=== PATIENT | female | born 1970 | race African-American/Black ===

== ENCOUNTER 2022-01-23 16:35 | Emergency (ER) | payer OTHER ==
[~2022-01-23] VITALS: Ht 170.2 cm; Wt 127.0 kg
[2022-01-23] MEDS ORDERED: ASPIRIN 81MG TABLET PO ONE (18:45)
[2022-01-23] MEDS ORDERED: ONDANSETRON HCL 4MG/2ML INJ IV ONE (18:45)
[2022-01-23] MEDS ORDERED: NITROGLYCERIN 0.4MG TABLET SL SL PRN (18:45)
[2022-01-23] MEDS ORDERED: CLONIDINE 0.2MG TABLET PO ONE (18:45)
[2022-01-23 19:46] LABS: HEMATOCRIT. 43.8 % (36.0-48.0); HEMOGLOBIN. 14.1 g/dL (12.0-16.0); MEAN CORPUSCULAR HEMOGLOBIN 27.1 pg (28.0-32.0); MEAN CORPUSCULAR VOLUME 84.4 fL (81.0-99.0); MEAN PLATELET VOLUME 9.2 fl (7.4-10.4); PLATELET 214 x1000/uL (130-400); RED BLOOD CELL COUNT 5.19 mill/uL (4.2-5.4); RED CELL DISTRIBUTION WIDTH 15.1 % (11.6-14.6)
[2022-01-23 19:52] LABS: CHLORIDE 102 mEq/L (98-107)
[2022-01-23 19:54] LABS: HCG SCREEN NEGATIVE
[2022-01-23 19:56] LABS: D-DIMER 1.04 mg/L FEU (<0.50); PARTIAL THROMBOPLASTIN TIME 26.3 sec (23.4-31.0); PROTHROMBIN TIME 10.8 sec (9.6-11.0)
[2022-01-23 20:35] LABS: PLATELET ESTIMATE NORMAL
[2022-01-23] MEDS ORDERED: CEFTRIAXONE 1 G PREMIX 50 ML IV ONE (21:00)
[2022-01-23 21:47] LABS: CLARITY URINE CLOUDY (CLEAR); COLOR URINE YELLOW (YELLOW); KETONES URINE NEGATIVE (NEGATIVE); LEUKOCYTE ESTERASE URINE 3+ (NEGATIVE); NITRITE URINE POSITIVE (NEGATIVE); OCCULT BLOOD URINE 2+ (NEGATIVE); PH URINE 5.5 (4.5-8.0); PROTEIN URINE 1+ (NEGATIVE); SPECIFIC GRAVITY URINE 1.057 (1.005-1.030); UROBILINOGEN URINE 0.2 E.U./dL (0.2-1.0)
[2022-01-23 23:00] VITALS: BP 123/66
== END 2022-01-23 23:48 | disposition short-term general hospital (02) ==
LOC: ER 16:35
DX: R06.02 Shortness of breath (principal); I10 Essential (primary) hypertension; R00.0 Tachycardia, unspecified; M79.605 Pain in left leg; M79.604 Pain in right leg; N39.0 Urinary tract infection, site not specified; R94.31 Abnormal electrocardiogram [ECG] [EKG]; I25.10 Atherosclerotic heart disease of native coronary artery without angina pectoris; E66.01 Morbid (severe) obesity due to excess calories; Z68.41 Body mass index [BMI] 40.0-44.9, adult; Z20.822 Contact with and (suspected) exposure to COVID-19; Z95.5 Presence of coronary angioplasty implant and graft; Z86.718 Personal history of other venous thrombosis and embolism; Z79.01 Long term (current) use of anticoagulants; Z79.899 Other long term (current) drug therapy
CPT/HCPCS: 36415; 71045; 71275; 80053; 81003; 83880; 84484; 84703; 85025; 85379; 85610; 85730; 87077; 87086; 87186; 87426; 93005; 93970; 96365; 96375; 99285; C9803; J0696; J2405; Z7610